=== PATIENT | female | born 1935 | race Two or more races ===

== ENCOUNTER 2023-06-02 14:55 | Inpatient (IN) | payer OTHER ==
[~2023-06-02] VITALS: Ht 177.8 cm; Wt 40.4 kg
--- NOTE | 2023-06-02 15:11 | NUR ---
PACIENTE ALERTA Y ORIENTADA EN PERSONA Y LUGAR EN COMPANIA DE FAMILIAR QUIEN VERBALIZA QUE SE QUE PACIENTE SE QUEDO PAUL EN EL HOGAR Y CUANDO LLEGARON LA ENCONTRARON EN EL SUELO, VERBALIZAN NO SABER SI PACIENTE SE GOLPEO EN LA TASHI. PACIENTE VEBRALIZA NO TENER DOLOR AL MOMENTO. SE OBSERVA PACIENTE CON LACERACION LEVE EN AMBAS PIERNAS. SE MONITOREA S/V Y SE DOCUMENTAN EN SISTEMA.
--- NOTE | 2023-06-02 17:08 | NUR ---
SE EDUCA A PTE SOBRE TX MEDICO ESTA REFIERE ENTENDER, SE JENNIFER MUESTRAS DE LABORATORIO UTILIZANDO MEDIDAS ASEPTICAS. SE NOTIFICA ESTUDIO DE RX Y CT PENDINETE A REALIZAR.
--- NOTE | 2023-06-02 19:37 | NUR ---
SE RECIBE PTE DEL AREA DE OBSERVACION ALERTA Y ORIENTADA X3, SE ACOMODA EN CAMA CON BARANDAS ELEVADAS Y POSICION MAS BAJA POR PRECAUCION. PTE CANALIZADA EN BRAZO DERECHO CON ANGIO #22 AREA PATENTE Y ARIES DE EDEMA Y ERITEMA. CON CANULA NASAL A 3LT. PATRON RESP. REGULAR SATURANDO 100%. BAJANDO TRIDIL @ 3ML/HR. PTE CON FLORES BAJANDO A GRAVEDAD. SE CONECTA A MONITOR CARDIACO Y OXIMETRIA DE PULSO CONTINUA. PTE EN OBSERVACION POR CAMBIOS SIGNIFICATIVOS.
== END 2023-06-06 19:14 | disposition home or self-care (01) | DRG 557 ==
LOC: ER 14:55 → SEC-K 22:42 → MEDJ 06-03 17:40
PROVIDERS: General Practice; ADMIT Internal Medicine; ATTEND Internal Medicine
PROC: B24BZZZ Ultrasonography of Heart with Aorta (ICD-10-PCS; principal; 2023-06-02)
PROC: BW28ZZZ Computerized Tomography (CT Scan) of Head (ICD-10-PCS; 2023-06-02)
PROC: 02HV33Z Insertion of Infusion Device into Superior Vena Cava, Percutaneous Approach (ICD-10-PCS; 2023-06-03)
PROC: 4A12X4Z Monitoring of Cardiac Electrical Activity, External Approach (ICD-10-PCS; 2023-06-03)
DX: M62.82 Rhabdomyolysis (principal); I21.A1 Myocardial infarction type 2; I50.20 Unspecified systolic (congestive) heart failure; S09.90XA Unspecified injury of head, initial encounter; S89.92XA Unspecified injury of left lower leg, initial encounter; S89.91XA Unspecified injury of right lower leg, initial encounter; I25.10 Atherosclerotic heart disease of native coronary artery without angina pectoris; R55 Syncope and collapse; E86.0 Dehydration; I11.0 Hypertensive heart disease with heart failure; E78.5 Hyperlipidemia, unspecified; F03.90 Unspecified dementia, unspecified severity, without behavioral disturbance, psychotic disturbance, mood disturbance, and anxiety; W19.XXXA Unspecified fall, initial encounter; Y92.009 Unspecified place in unspecified non-institutional (private) residence as the place of occurrence of the external cause